=== PATIENT | female | born 1945 | race Caucasian/White ===

== ENCOUNTER → 2016-12-02 | Outpatient (CLI) | payer OTHER ==
--- NOTE | 2016-12-03 09:17 | MR ---
MRI of the Right Shoulder History: Right shoulder pain, evaluate for rotator cuff pathology. Technique: Axial proton density, oblique coronal, and sagittal T1 and T2 images were acquired. Findings: Diffuse supraspinatus tendinosis is present, with high-grade partial tear of the anterior d istal fibers proximal to the greater tuberosity attachment. There may be a small focal full-thickness perforation along the anterior distal margin of the supraspinatus at the greater tuberosity. This fi nding is associated with marked tendon thinning along the anterior distal aspect with undersurface hi gh-grade partial tearing. More posteriorly, infraspinatus tendon disease is also identified. There is an undersurface partial t ear at the greater tuberosity footprint, with an associated longitudinal component of injury tracking along the anterior aspect of the infraspinatus tendon to the myotendinous junction. Subscapularis is intact. Teres minor is intact. Long head biceps tendon is markedly thinned through the rotator interval and intra-articular aspect c ompatible with high-grade partial tear. There is associated degenerative maceration and fraying of th e superior labrum at the biceps labral complex. The remainder of the glenoid labrum is intact, and ar ticular cartilage of the glenohumeral joint appears intact. Acromioclavicular degenerative hyperostosis is present. Additionally, there is a relatively large ost eophyte which arises from the anterior undersurface of the acromion, and contributes to features of a nterior external impingement. Impression: 1. Features of anterior external impingement, with subacromial osteophyte and acromioclavicular degen erative hyperostosis. 2. High-grade partial tear anterior distal supraspinatus tendon at the greater tuberosity. There may be a small focal full-thickness perforation along the anterior attachment to the greater tuberosity. 3. Undersurface partial-thickness infraspinatus tendon tear. 4. Marked long head biceps attenuation, compatible with high-grade, near-complete tear. Associated de generative maceration and fraying of the superior glenoid labrum at the biceps labral complex.
== END ==
LOC: FIMAGING 15:41
PROVIDERS: ATTEND Orthopaedic Surgery
DX: M75.41 Impingement syndrome of right shoulder (principal); M75.101 Unspecified rotator cuff tear or rupture of right shoulder, not specified as traumatic

== ENCOUNTER 2017-01-29 08:07 | Day surgery (SDC) | payer OTHER ==
[2017-01-29] MEDS ORDERED: LIDOCAINE 1% 2 ML INJ ONE (08:57)
[2017-01-29] MEDS ORDERED: MIDAZOLAM 2 MG/2 ML VIAL ONE (09:08)
[2017-01-29] MEDS ORDERED: ACETAMINOPHEN 500 MG TAB ONE (09:09)
[2017-01-29] MEDS ORDERED: CEFAZOLIN 2 GM/DEXTROSE/100 ML BAG IV ONE (09:11)
[2017-01-29] MEDS ORDERED: BUPIVACAINE/EPI 0.5% 30 ML SDV ONE (09:18)
[2017-01-29] MEDS ORDERED: CALCIUM CHLORIDE 1 GM/10 ML INJ ONE (09:19)
[2017-01-29] MEDS ORDERED: THROMBIN (BOVINE) 5,000 UNIT VIAL TP ONE (09:19)
[2017-01-29] MEDS ORDERED: DEXAMETHASONE 4 MG/ML VIAL ONE ×2 (09:20→09:24)
[2017-01-29] MEDS ORDERED: fentaNYL 100 MCG/2 ML INJ ONE (09:22)
[2017-01-29] MEDS ORDERED: PROPOFOL/EMULSION 500 MG/50 ML BOTTLE IV ONE (09:23)
[2017-01-29] MEDS ORDERED: ONDANSETRON 4 MG/2 ML VIAL ONE (09:24)
[2017-01-29] MEDS ORDERED: LIDOCAINE 2% JELLY 5 ML TUBE ONE (09:29)
[2017-01-29] MEDS ORDERED: ACETAMINOPHEN 500 MG TAB PO ONE (09:30)
[2017-01-29] MEDS ORDERED: ceFAZolin 2 GM/DEXTROSE 100 ML IV ONE (09:30)
[2017-01-29] MEDS ORDERED: epHEDrine SULFATE 10 MG/ML SYR ONE ×2 (09:46)
[2017-01-29] MEDS ORDERED: PHENYLEPHRINE HCL 100 MCG/ML SYR ONE (10:31)
[2017-01-29] MEDS ORDERED: PROPOFOL 200 MG/20 ML VIAL ONE (11:09)
--- NOTE | 2017-01-29 13:08 | GOP ---
[f rep st] OPERATIVE REPORT DATE OF OPERATION: 01/29/2017 SURGEON: Raegan Kaur MD ROAD MECHANIC: Xenia Schulz, certified SA, whose presence was medically necessary. ANESTHESIA: By LMA plus scalene nerve block per surgeon's request. PREOPERATIVE DIAGNOSIS: Right shoulder impingement syndrome with rotator cuff tear, labral tear and biceps subluxation. POSTOPERATIVE DIAGNOSIS: Right shoulder impingement syndrome with rotator cuff tear, labral tear an d biceps subluxation. PROCEDURE PERFORMED: FINDINGS: DESCRIPTION OF PROCEDURE: Patient brought to the Operating Room after the right side had been ident ified as correct side by the patient, nurse and physician. Once in the Operating Room, she was give n a scalene block on the right side. She was then placed under general anesthesia using LMA. Once asleep, she was placed in a beach chair position with the right upper extremity sterilely prepped an d draped in the usual fashion using GSI solution. Once prepped and draped, incision was made in the superior portion of the biceps tendon, which was palpable beneath the skin. Sharp dissection was c arried down through skin, subcutaneous layers, identifying the deltopectoral interval which was blun tly divided identifying the tendon sheath. The tendon sheath was opened. A #2 FiberWire was woven into the biceps tendon. It was cut. A guidewire was placed in the biceps groove. The biceps tendo n was measured to be 6 mm in width. Therefore, a 7 mm hole was drilled. The biceps was placed with in the hole and a 9 mm screw-in anchor was used to hold the biceps tendon in place. Once completed, the wound was thoroughly irrigated with antibiotic solution, was closed in layers to include 0 [place] cryl suture for the fascial layer, 2-0 Monocryl for the subcutaneous layers and a 3-0 Prolene suture in a running subcuticular stitch for the skin. Attention was turned to the shoulder where the incision was made up the posterolateral corner of the acromion with the camera introduced without difficulty. Patient was noted to have tears of the sup erior and anterior portion of the labrum along with some osteoarthritic changes of the glenohumeral joint. The biceps tendon was noted to be lax secondary to the tenodesis that had occurred. She was also noted to have a significant hole in the rotator cuff. Therefore, using an in-to-out technique , an anterior portal was made in the superolateral coracoid process with 6 x 75 mm threaded cannula placed through the anterior portal. A 3.5 mm smooth shaver was used to debride both tears of the valencia perior and anterior portions of the labrum, removed the biceps stump until achieving a smooth surfac e on the superior labrum, removed the loose fragments of cartilage of the rotator cuff attached on t he greater tuberosity. Once completed, all instruments were removed from the glenohumeral joint. U sing the same portal sites, were reintroduced in the subacromial space. A 3rd incision was made 3 c m lateral to the acromial process in line with the posterior cortex of the clavicle with the camera moved to the lateral portal and alternatingly using arthroscopic Bovie tip and shaver, was used to r emove the abundant amount of bursa and soft tissue from the undersurface of the acromion. She was n oted to have a large anterior acromial curve and the acromionizer bur was brought through the licensed marine engineer ior portal and used to remove that curve until achieving a flat ceiling. Attention was turned to the distal clavicle, which was noted to have a large inferior spur and this was also removed using a combination of shaver and bur. Once completed, the camera was switched hosea k to the posterior portal. The rotator cuff tear was easily found. The bone around the greater tub erosity footprint was eburnated in order to get a healing surface. A #2 FiberWire was woven into th e anterior and posterior portions of the rotator cuff tear. The sutures were then passed through a [place] anchor that was driven into the bone pulling the rotator cuff musculature onto the eburnated bone. The suture was cut short. The camera switched back to the lateral portal, and a spinal need le was used to identify the location of the AC joint with an incision placed up the posterior portio n. The acromionizer bur was then brought through the superior portal into the AC joint. The bone w as taken from the distal end of the clavicle and medial portion of the acromion until achieving adeq uate space. The camera was able to be introduced into the AC joint. A probe brought from the later al portal and pushed on the end of the collarbone showed an approximately 1.5 cm gap between the col larbone and the acromion. Once finished, all instruments removed from the subacromial space with 30 cc of Marcaine infused in the subacromial space. All portal sites were closed using 3-0 nylon sutu re in a [id number] type stitch with Plasma Gel placed in the subacromial space. The biceps wou nd was dressed with Steri-Strips, all wounds were then dressed with Xeroform, 4 x 4, and Tegaderm. She was completely undraped in the operating room, had a shoulder immobilizer placed on the right up per extremity. She was awoken, extubated, transferred on a stretcher, and sent to the Recovery Room in good conditi on. PROCEDURE PERFORMED: 1. Open right biceps tenodesis with right shoulder scope with rotator cuff repair x1. 2. Subacromial decompression. 3. Arthroscopic AC resection with debridement of rotator cuff, labrum and subacromial bursa along w ith the biceps stump. INDICATION FOR SURGERY: This is a 71-year-old female with a several month history of right shoulder pain worsening with use with time with increasing weakness. An MRI exam revealed a rotator cuff te ar, significant anterior acromial curve, subluxation of the biceps tendon and a labral tear. She wi shes to have surgery in order to resolve the problem. /[id number]/MODL
[2017-01-29] MEDS ORDERED: HYDROCODONE/APAP 5/325 TAB ONE (13:25)
--- NOTE | 2017-02-28 13:51 | GOP ---
[f rep st] OPERATIVE REPORT DATE OF OPERATION: 01/29/2017 SURGEON: Raegan Kaur MD PROPERTY MANAGEMENT ASSISTANT: ARASH WhartonA, LSA, whose presence was medically necessary. ANESTHESIA: LMA plus scalene nerve block per surgeon request. PREOPERATIVE DIAGNOSIS: Right shoulder impingement syndrome with rotator cuff tear. Acromioclavicu lar osteoarthritis, labral tear and biceps tendinopathy. POSTOPERATIVE DIAGNOSIS: Right shoulder impingement syndrome with rotator cuff tear. Acromioclavic ular osteoarthritis, labral tear and biceps tendinopathy. PROCEDURE PERFORMED: Open right biceps tenodesis with right shoulder scope with rotator cuff repair x1, subacromial decompression, arthroscopic acromioclavicular resection. Debridement of rotator cuf f, labrum, bursa and biceps stump. FINDINGS: INDICATIONS: This is a 71-year-old female with a several month history of right shoulder pain worse roseanne with use and with time. MRI exams revealed significant anterior acromial curve, biceps tendino sammi, labral tear and probable rotator cuff tear. She wished to have surgery in order to resolve t he problem. DESCRIPTION OF PROCEDURE: Patient was brought to the operating room after the right side had been i dentified as correct side by the patient, nurse and physician. Once in the operating room, she was g iven a scalene block on the right side. She was then placed under anesthesia using an LMA. Once as leep, she was placed in a beach chair position with the right upper extremity sterilely prepped and draped in usual fashion using a GSI solution. Once prepped and draped, incision was made in the post erolateral corner of the acromion with the camera introduced without difficulty. Inspection of the j oint revealed the biceps to be frayed along with labral tearing noted within the glenohumeral joint. Therefore, the camera was removed. Attention was turned to the anterior portion of shoulder and a 5 cm incision was made directly over the area of the biceps groove, with sharp dissection carried d own through skin and subcutaneous layers, identifying the deltopectoral interval. The deltopectoral interval was then bluntly dissected with the deltoid retracted laterally in order to gain access to the biceps groove. Biceps groove was opened. A #2 FiberWire was woven into the biceps tendon. It was cut short. A guidewire was placed in the bicipital groove. Biceps tendon was measured to be 5 mm. Therefore, a 6 mm unicortical hole was made in the biceps groove and an 8 mm [place] biceps anch or was woven into the biceps tendon and inserted into the unicortical hole made in the humerus. Once completed, the wound was thoroughly irrigated with antibiotic solution and was closed in layers to include 2-0 Vicryl suture to the subcutaneous layers and a 3-0 V-Loc suture in a running subcuticula r stitch for the skin. Attention was turned back to the shoulder where the camera was reintroduced into the glenohumeral sirisha int. Using an in-to-out technique, an anterior portal was made in superolateral coracoid process wi 6 x 75 mm threaded cannula placed through the anterior portal. Combination of biter and shaver w as used to remove the remaining portion of the biceps tendon and smooth off the surface at the attac hment of the labrum. She was noted to have tearing of the superior and anterior portions of the labr um; this was also debrided using a shaver. She was noted to have fraying of the rotator cuff as it inserted on the greater tuberosity, raising suspicion for rotator cuff tear. Once completed within the glenohumeral joint, the instruments were removed from the glenohumeral joint and, using the same portal sites, were reintroduced in the subacromial space. A 3rd incision was made 3 cm lateral to the acromial process in line with the posterior cortex of the clavicle and the camera switched to e lateral portal. Arthroscopic Bovie tip and a shaver were used to remove the abundant amount of so ft tissue within the subacromial space. On the undersurface of the acromion, she was noted to have a sharp anterior acromial curve and an acromial bur was brought through the posterior portal and use d to remove that curve until achieving a flat ceiling. Camera switched back to the posterior portal. An exploration of the rotator cuff as attached on the greater tuberosity revealed a rotator cuff t ear that was full thickness. Therefore, the bone around the footprint of the greater tuberosity was eburnated. A #2 FiberWire was woven into the anterior and posterior portions of the rotator cuff. It was pulled taut and a [place] anchor was attached onto the sutures, driven into the greater tube rosity in order to approximate the rotator cuff onto the eburnated bone. Once completed, the camera was switched back to the lateral portal. Spinal needle was used to identify the posterior portion o f the AC joint and incision was made directly over the posterior portion of the AC joint, and a comb ination of shaver and bur were used to remove the lateral portion of the clavicle and the medial por tion of the acromion until leaving a large enough space that a camera could be introduced into that portal site and a probe was brought through laterally to ensure at least 2 cm of bone had been remov ed from the AC joint in order to create the AC resection. Once completed, all instruments were amirah mary from the subacromial space with 30 cc of Marcaine infused in the subacromial space. The 4 jacob l sites were closed using 3-0 nylon suture in a slvqga-dv-qykff type stitch with plasma gel placed i n the subacromial space. The bicipital wound was dressed with Steri-Strips, and then all wounds wer e dressed with Xeroform, 4 x 4, and Tegaderm. The patient was completely undraped in the operating room, had the right upper extremity placed in a shoulder immobilizer. She was then woken up, extuba florencio, transferred onto a stretcher, and sent to recovery room in good condition. /[id number]/MODL
== END 2017-01-29 14:30 | disposition home or self-care (01) ==
LOC: FSGY 08:07
PROVIDERS: ATTEND Orthopaedic Surgery
PROC: 0MB14ZZ Excision of Right Shoulder Bursa and Ligament, Percutaneous Endoscopic Approach (ICD-10-PCS; principal; 2017-01-29 09:30)
PROC: 0PB94ZZ Excision of Right Clavicle, Percutaneous Endoscopic Approach (ICD-10-PCS; principal; 2017-01-29 09:30)
PROC: 0LQ14ZZ Repair Right Shoulder Tendon, Percutaneous Endoscopic Approach (ICD-10-PCS; principal; 2017-01-29 09:30)
DX: M25.811 Other specified joint disorders, right shoulder (principal); M75.101 Unspecified rotator cuff tear or rupture of right shoulder, not specified as traumatic; I10 Essential (primary) hypertension; E78.5 Hyperlipidemia, unspecified
CPT/HCPCS: C1713; J0171; J0690; J1100; J2250; J2370; J2405; J2704; J3010

== ENCOUNTER → 2017-10-29 | Outpatient (CLI) | payer OTHER | LOC: FIMAGING 10:22 | PROVIDERS: ATTEND Internal Medicine | DX: Z12.31 Encounter for screening mammogram for malignant neoplasm of breast (principal) ==

== ENCOUNTER 2018-06-14 08:39 | Emergency (ER) | payer OTHER ==
[2018-06-14 08:46] VITALS: BP 115/61
--- NOTE | 2018-06-14 09:13 | EDPHY ---
H & P Time Seen by Provider: 06/14/18 08:54 HPI/ROS: CHIEF COMPLAINT: Right wrist injury HISTORY OF PRESENT ILLNESS: 72-year-old female presents to the emergency department with pain in her right wrist and forearm area. Patient was walking her dog yesterday who lunged toward another dog and she twisted her right wrist and forearm. She complains of isolated pain in her right forearm. She has had previous surgery to her right wrist on a number of years ago. She is right- hand dominant. She has pain especially with certain range of motion especially supination. ROS: Denies numbness or tingling in her fingers, pain in the elbow or her right shoulder. Denies symptoms in the left upper extremity. Past Medical/Surgical History: Orthopedic surgeries, hypertension Social History: and lives in [place] Smoking Status: Never smoked Physical Exam: Examination of the right wrist reveals swelling from about the right mid forearm to the right wrist. She has limited supination secondary to pain. She has no pain in the anatomic snuffbox. She has no pain with palpation in the right elbow or right shoulder. She has full flexion and extension of the right elbow. She is able to flex and extend her right wrist however radial and ulnar deviation does cause some pain. Normal sensation to light touch with normal 2 point discrimination. Strong radial pulse at the right wrist. Constitutional: Initial Vital Signs Temperature (C) 36.7 C 06/14/18 08:43 Heart Rate 76 06/14/18 08:43 Respiratory Rate 17 06/14/18 08:43 Blood Pressure 115/61 06/14/18 08:43 O2 Sat (%) 95 06/14/18 08:43 O2 Delivery Mode Room Air Allergies/Adverse Reactions: Sulfa (Sulfonamide Antibiotics) Allergy (Verified 06/14/18 08:42) Unknown Home Medications: Medication Instructions Recorded Herbals/Supplements -Info Only 01/24/17 Lisinopril 01/24/17 SIMVASTATIN 01/24/17 MDM/Departure - MDM Imaging Results: Imaging Impressions Wrist X-Ray 06/14/18 09:00 Impression: 1. Nondisplaced distal ulnar shaft fracture 2. Suspect low bone density. This patient would benefit from a DEXA scan. 2. Right Wrist, 4 views including a navicular view History: Pain post trauma yesterday Findings: The spiral fracture of the distal ulnar shaft is confirmed. There is an old solidly healed fracture deformity of the distal radius and its articular surface. There is severe osteoarthritic change of the distal radial ulnar joint. 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 No acute fracture is identified. Carpal bones remain normally aligned. Impression: Nothing acute identified. Forearm X-Ray 06/14/18 09:09 Impression: 1. Nondisplaced distal ulnar shaft fracture 2. Suspect low bone density. This patient would benefit from a DEXA scan. 2. Right Wrist, 4 views including a navicular view History: Pain post trauma yesterday Findings: The spiral fracture of the distal ulnar shaft is confirmed. There is an old solidly healed fracture deformity of the distal radius and its articular surface. There is severe osteoarthritic change of the distal radial ulnar joint. 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 No acute fracture is identified. Carpal bones remain normally aligned. Impression: Nothing acute identified. Imaging: I viewed and interpreted images myself Procedures: Patient was placed in long-arm sugar-tong splint and sling and examined post application in good placement with normal CUSTOMER SUPPORT TECHNICIAN. ED Course/Re-evaluation: 72-year-old female presents to the emergency department with right upper extremity injury. X-rays reveal fracture to the left ulna in the mid shaft. 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 She was placed in [employer] sugar-tong splint and sling and given orthopedic referral. She has had previous surgical repair by Dr. Raegan Kaur and would like to follow up with him again. Patient also had a ring noted to her right ring finger, however she was unable to remove this and did not want this cut off. I did encourage her to return if her finger became more swollen or if she developed tingling sensation in her finger or if it became discolored. - Depart Disposition: Home, Routine, Self-Care Clinical Impression: Closed right forearm fracture Qualifiers: Encounter type: initial encounter Qualified Code(s): S52.91XA - Unspecified fracture of right forearm, initial encounter for closed fracture Condition: Good Instructions: Arm Fracture in Adults (ED) Additional Instructions: Keep splint on and keep it dry until follow-up with orthopedic surgeon. Ibuprofen 600 mg every 8 hr as needed for pain. Ice and elevate to help reduce swelling. Referrals: Isai Oliva MD [Medical Doctor] - As per Instructions (Orthopedic surgeon on- call) Raegan Kaur MD [Medical Doctor] - As per Instructions (Orthopedic surgeon you have seen in the past)
== END 2018-06-14 09:50 | disposition home or self-care (01) ==
PROC: 2W38X1Z Immobilization of Right Upper Extremity using Splint (ICD-10-PCS; principal; 2018-06-14)
DX: S52.244A Nondisplaced spiral fracture of shaft of ulna, right arm, initial encounter for closed fracture (principal); X50.0XXA Overexertion from strenuous movement or load, initial encounter; Y93.K1 Activity, walking an animal; Y99.8 Other external cause status; M85.831 Other specified disorders of bone density and structure, right forearm